=== PATIENT | male | born 1955 | race Caucasian/White ===

== ENCOUNTER 2020-03-15 17:53 | Emergency (ER) | payer MEDICARE, OTHER, SELFPAY ==
[2020-03-15 17:53] VITALS: BMI 27.2
--- NOTE | 2020-03-15 17:57 | ED_ITS ---
HPI - Abdominal Pain General: Chief Complaint: Abdominal Pain Stated Complaint: CONSTIPATION Time Seen by Provider: 03/15/20 17:54 History of Present Illness: HPI narrative: Patient is a 64-year-old male who comes to the ED with constipation and urinary retention. Patient has a past medical history of Parkinson's. He has been constipated for about 1 to 2 days which is not unusual for him. He took some mag citrate 2 days ago. He started having some abdominal pain in the lower abdomen today. Patient also says that he has not urinated in close to 24 hours. Patient's says he has had an episode of urinary retention in the past and his doctors told him that it is typical symptom for people with Parkinson's. While here in the ED patient did pass liquid stool, but still has not urinated. Patient said he could feel the mag citrate he took from a day or 2 ago working and causing him to pass loose stool while in the ED. Patient has been eating and drinking normally. Patient states that him having constipation was not as big of a concern, but the abdominal pain and his inability urinate is what brought him in for evaluation today. He denies any fever, chills, nausea, vomiting. Associated Symptoms: Reports constipation; Denies chills, diarrhea, dysuria, fever(s), hematochezia, hematuria, nausea and vomiting Review of Systems Const: Denies: fever(s), chills or fatigue Eyes: Denies: change in vision or eye discomfort ENMT: Denies: throat pain, odynophagia, nasal discharge or nasal congestion Card: Denies: chest pain, palpitations, edema, swelling of feet/ankles, dyspnea on exertion or orthopnea Resp: Denies: dyspnea, productive cough or non-productive cough GI: Reports: abdominal pain (lower abdomen) and constipation; Denies: nausea, vomiting, diarrhea or hematochezia : Reports: difficulty urinating (has not urinated in approximately 24 hours.) and oliguria; Denies: flank pain, dysuria or hematuria Musc: Denies: neck pain, back pain or extremity swelling Skin/Breast: Denies: rash or new lesions Neuro: Denies: headache(s), numbness in extremities or weakness in extremities PFS ED PFSH: Social History Smoking and tobacco status: never smoked Physical Exam Narrative: EXAM NARRATIVE: Patient is is a 64-year-old male is lying on the exam bed and showing signs of a resting tremor in both right and left extremities. He does not appear in any acute distress or pain. Const: COMMON NORMALS: no acute distress, patient oriented x3 and alert GENERAL APPEARANCE: cooperative and comfortable ORIENTATION/CONSCIOUSNESS: Yes awake, Yes oriented to person and Yes oriented to place HENMT: COMMON NORMALS: normocephalic HEAD & SCALP: normocephalic MOUTH: Normal oral and palatal mucosa present THROAT: posterior oropharynx normal and uvula midline Eye: COMMON NORMALS: Equal, round and reactive pupils present PUPIL: Yes Equal, round and reactive pupils present Neck/C-Spine: COMMON NORMALS: supple GENERAL: Yes normal visual inspection Resp: COMMON NORMALS: normal respiratory effort, No retractions, No use of acc essory muscles and clear to auscultation bilaterally EFFORT & INSPECTION: Yes able to speak in complete sentences AUSCULTATION: clear to auscultation bilaterally Cardio: COMMON NORMALS: regular rate, regular rhythm, S1 normal heart sound present, S2 normal heart sound present, No gallops present (Cardio), No clicks present (Cardio), No murmurs present (Cardio) and Peripheral pulses 2+ throughout RATE: regular rate RHYTHM: regular rhythm HEART SOUNDS: S1 normal heart sound present and S2 normal heart sound present PERIPHERAL PULSES: Peripheral pulses 2+ throughout GI: COMMON NORMALS: Normal to inspection, nondistended, normoactive bowel sounds present, Soft to palpation and no masses AUSCULTATION: Yes normoactive bowel sounds PALPATION: Yes Soft to palpation and Yes Tenderness to palpation present (GI) Details: LLQ (moderate tenderness) and other (lower abdomen over bladder was mildly tender to palpation) : COMMON NORMALS: Yes no CVA tenderness BLADDER/KIDNEY EXAM: Yes no CVA tenderness Back/Pelvis: COMMON NORMALS: no CVA tenderness Extremity: COMMON NORMALS: normal to inspection and no pedal edema Neuro: COMMON NORMALS: patient oriented x3 SENSORIUM/ORIENTATION: Yes alert, Yes oriented to person and Yes oriented to place GAIT: Yes Normal gait present MOTOR EXAM: Tremors during motor activity present resting tremor bialteral upper extremity Skin: COMMON NORMALS: no rashes or lesions noted GENERAL SKIN EXAM: no rashes or lesions noted and dry skin Course Reevaluation(s): Reevaluation #1: After placing the milk and molasses enema patient was able to pass large ball of stool that was causing impaction while here in the ED. Patient states that he feels better and is ready to get home. Vital Signs: Vital signs: Vital Signs Temperature 99.0 F 03/15/20 17:58 Pulse Rate 72 03/15/20 22:18 Respiratory Rate 18 03/15/20 22:18 Blood Pressure 158/85 03/15/20 22:18 Pulse Oximetry 98 03/15/20 22:18 MDM - Abdominal Pain MDM Narrative: Medical decision making narrative: Patient is a 64-year-old male who comes to the ED with constipation and urinary retention. Patient has a past medical history of Parkinson's disease and he takes carbidopa/levodopa and rivastigmine. Bladder scan was performed and patient had approximately 240 mils in urine. Murillo catheter was placed. CBC showed a white blood cell count of 13 and CMP, lipase and UA were unremarkable. Patient was given IV fluids and [address] of the abdomen showed a fecal impaction in the colon. Patient was then given milk of molasses enema and he was able to pass large ball of impacted stool. Patient felt better immediately after passing large stool. Patient's Murillo catheter was removed. Patient told to follow-up with his PCP in 5 to 7 days for reevaluation. I also told him to take MiraLAX, drink lots of water and increase fiber intake. I told patient he can return to the ED if symptoms worsen. Patient understood and agreed with plan. Lab Data: Attestation: I reviewed the patient's lab results. Labs: Lab Results 03/15/20 03/15/20 03/15/20 Range/Units 18:25 18:25 18:50 WBC 13.0 H (4.0-10.0) 10^3/ uL RBC 5.29 (4.1-5.3) 10^6/u L Hgb 15.0 (11.7-16.6) g/dL Hct 45.3 (42.0-52.0) % MCV 85.6 (80-94) fL MCH 28.4 (28.0-34.0) pg MCHC 33.1 (30.0-36.0) g/dL RDW 12.3 (12.1-15.1) % Plt Count 175 (130-400) 10^3/c mm MPV 9.3 (7.4-10.4) fL Neut % (Auto) 87.9 % Lymph % (Auto) 5.3 % Piatt % (Auto) 6.2 % Eos % (Auto) 0.1 % Baso % (Auto) 0.2 % Neut # (Auto) 11.4 H (1.8-7.7) 10^3/u L Lymph # (Auto) 0.7 L (0.8-4.8) 10^3/u L Piatt # (Auto) 0.8 (0.2-0.9) 10^3/u L Eos # (Auto) 0.0 (0.0-0.8) 10^3/u L Baso # (Auto) 0.0 (0.0-0.1) 10^3/u L Nucleated RBC % (a uto) 0 % Nucleated RBCs # 0.0 /100WBC Sodium 139 (136-145) mmol/L Potassium 4.2 (3.5-5.1) mmol/L Chloride 102 (98-107) mmol/L Carbon Dioxide 25 (22-29) mmol/L Anion Gap 16.2 (5-19) BUN 16 (8-23) mg/dL Creatinine 0.8 (0.7-1.2) mg/dL GFR Calculation 98.0 (90-130) mL/min Glucose 120 H (65-115) mg/dL Calculated Osmolal ity 286 (285-295) mOsm/k g Calcium 9.1 (8.5-10.5) mg/dL Total Bilirubin 0.8 (0.15-1.2) mg/dL AST 22 (0-40) U/L ALT 29 (0-41) U/L Alkaline Phosphata se 54 (40-130) IU/L Total Protein 7.1 (6.6-8.7) g/dL Albumin 4.6 (3.5-5.2) g/dL Globulin 2.5 (1.3-4.6) g/dL Lipase 41 (13-60) U/L Urine Color Yellow (Yellow) Urine Appearance Clear (CLEAR) Urine pH 7 (5-7) Ur Specific Gravit y 1.010 (1.005-1.030) Urine Protein Neg (Negative) Urine Glucose (UA) Norm (Normal) Urine Ketones 1+ H (Negative) Urine Blood Neg (Negative) Urine Nitrate Negative (Negative) Urine Bilirubin Neg (NEGATIVE) Urine Urobilinogen Norm (Negative) mg/dL Ur Leukocyte Diane ase Negative (Negative) Urine RBC None (0-2) /hpf Urine WBC None (0-5) /hpf Ur Squamous Epith Cells None (0-5) Urine Bacteria Trace (NONE) Urine Mucus - Imaging Data ^: CT Abd/Pel: Attestation: I personally reviewed and interpreted this imaging study as follows: Radiologist's impression: [place] [address] CT Scan Report Signed Patient: Casey Hernandes Unit #: [id number] : 1955 Age/Sex: 64 / M ADM Date: 03/15/20 Loc: ER Room/Bed: Attending Dr: Ordering Provider/Ordering MD: Ángel Albarran Date of Service: 03/15/20 Procedure(s): CT abdomen pelvis w con* [id number] Accession Number(s): [id number] Report Number: [id number] PROCEDURE INFORMATION: Exam: CT Abdomen And Pelvis With Contrast Exam date and time: 03/15/2020 7:07 PM Age: 64 years old Clinical indication: Abdominal tenderness and constipation; Patient HX: PT shakes uncontrollably; Additional info: Abdom pain, constipation, urine retention, abdom spasms TECHNIQUE: Imaging protocol: Computed tomography of the abdomen and pelvis with intravenous contrast. Radiation optimization: All CT scans at this facility use at least one of these dose optimization techniques: automated exposure control; mA and/or kV adjustment per patient size (includes targeted exams where dose is matched to clinical indication); or iterative reconstruction. Contrast material: OMNI; Contrast volume: 95 ml; Contrast route: IV; COMPARISON: No relevant prior studies available. RADIATION DOSE METRICS: Total DLP: 1041.48 mGy-cm FINDINGS: Liver: Normal. No mass. Gallbladder and bile ducts: Normal. No calcified stones. No ductal dilation. Pancreas: Normal. No ductal dilation. Spleen: Calcified granulomas in the spleen. Adrenals: Normal. No mass. Kidneys and ureters: 2 mm and 4 mm nonobstructing calculi in the left kidney. The right kidney is normal. No ureteral calculus or hydronephrosis. Stomach and bowel: Large stool ball in the rectum. The remainder of the colon is fluid-filled with scattered air-fluid levels. The stomach and small bowel are unremarkable. Appendix: No evidence of appendicitis. Intraperitoneal space: Unremarkable. No free air. No significant fluid collection. Vasculature: Unremarkable. No abdominal aortic aneurysm. Lymph nodes: Unremarkable. No enlarged lymph nodes. Bladder: Murillo catheter in the urinary bladder. Reproductive: Unremarkable as visualized. Bones/joints: Degenerative changes with disc space narrowing at L5-S1. No compression fracture. Soft tissues: Unremarkable. CT/CT abdomen pelvis w con* [id number] IMPRESSION: 1. Large stool ball in the rectum, consistent with impaction. 2. Liquid throughout the remainder of the colon with air-fluid levels, consistent with diarrhea. 3. Nonobstructing left renal calculi. Radiation Dose CTDIVOL = (mGy): DLP = 1041.48 (mGy-cm) Dictated By: Odell Espinoza Signed By: Odell Espinoza Signed Date/Time: 03/15/202000 DD/ 58 Discharge Plan Discharge Patient Disposition: Home, Self-Care Clinical Impression: Fecal impaction of rectum Condition: Stable Prescriptions: No Action rivastigmine tartrate 1.5 mg Capsule 1.5 mg PO BID RF: 0 carbidopa-levodopa 25-100 mg Tablet 2 tab PO QID RF: 0 melatonin 10 mg Tablet 10 mg PO DAILY RF: 0 Discharge Orders: Discharge Order (Routine); Ordered 03/15/20 Ordered By: Ángel Albarran Discharge Diet: Regular Discharge Activity: Resume usual activity Patient Instructions: Constipation - Adult, Fecal Impaction (ED) Activity Restrictions/Additional Instructions: Follow-up with your PCP in 5 to 7 days for reevaluation. After a couple days you could purchase [id number] MiraLAX and take daily to help with constipation and normalizing bowel movements. Take Tylenol or ibuprofen for any pain or fever. Drink plenty of fluids and stay hydrated. Return to ED if you have any worsening symptoms. Discharge Date/Time: 03/15/20 22:24 Coding Level of Care Code ED Chief Enterprise Architect for Chg Fwd Exam Comprehensive
[2020-03-15 17:58] VITALS: BP 134/66; PULSE 116; RESP 18; TEMP 37.2; O2SAT 94
[2020-03-15 18:34] LABS: Basophils % 0.2 %; Eosinophils % 0.1 %; Hematocrit 45.3 % (42.0-52.0); Lymphocytes # 0.7 10^3/uL (0.8-4.8); Lymphocytes % 5.3 %; Mean Corpuscular HGB Conc 33.1 g/dL (30.0-36.0); Mean Corpuscular Hemoglobin 28.4 pg (28.0-34.0); Mean Corpuscular Volume 85.6 fL (80-94); Mean Platelet Volume 9.3 fL (7.4-10.4); Monocytes # 0.8 10^3/uL (0.2-0.9); Monocytes % 6.2 %; Neutrophils # 11.4 10^3/uL (1.8-7.7); Neutrophils % 87.9 %; Nucleated Red Blood Cells % 0 %; Platelet Count 175 10^3/cmm (130-400); Red Blood Count 5.29 10^6/uL (4.1-5.3); Red Cell Distribution Width 12.3 % (12.1-15.1)
--- NOTE | 2020-03-15 18:35 | CTR_ITS ---
PROCEDURE INFORMATION: Exam: CT Abdomen And Pelvis With Contrast Exam date and time: 03/15/2020 7:07 PM Age: 64 years old Clinical indication: Abdominal tenderness and constipation; Patient HX: PT shakes uncontrollably; Additional info: Abdom pain, constipation, urine retention, abdom spasms TECHNIQUE: Imaging protocol: Computed tomography of the abdomen and pelvis with intravenous contrast. Radiation optimization: All CT scans at this facility use at least one of these dose optimization techniques: automated exposure control; mA and/or kV adjustment per patient size (includes targeted exams where dose is matched to clinical indication); or iterative reconstruction. Contrast material: OMNI; Contrast volume: 95 ml; Contrast route: IV; COMPARISON: No relevant prior studies available. RADIATION DOSE METRICS: Total DLP: 1041.48 mGy-cm FINDINGS: Liver: Normal. No mass. Gallbladder and bile ducts: Normal. No calcified stones. No ductal dilation. Pancreas: Normal. No ductal dilation. Spleen: Calcified granulomas in the spleen. Adrenals: Normal. No mass. Kidneys and ureters: 2 mm and 4 mm nonobstructing calculi in the left kidney. The right kidney is normal. No ureteral calculus or hydronephrosis. Stomach and bowel: Large stool ball in the rectum. The remainder of the colon is fluid-filled with scattered air-fluid levels. The stomach and small bowel are unremarkable. Appendix: No evidence of appendicitis. Intraperitoneal space: Unremarkable. No free air. No significant fluid collection. Vasculature: Unremarkable. No abdominal aortic aneurysm. Lymph nodes: Unremarkable. No enlarged lymph nodes. Bladder: Murillo catheter in the urinary bladder. Reproductive: Unremarkable as visualized. Bones/joints: Degenerative changes with disc space narrowing at L5-S1. No compression fracture. Soft tissues: Unremarkable. CT/CT abdomen pelvis w con* [id number] IMPRESSION: 1. Large stool ball in the rectum, consistent with impaction. 2. Liquid throughout the remainder of the colon with air-fluid levels, consistent with diarrhea. 3. Nonobstructing left renal calculi. Radiation Dose CTDIVOL = (mGy): DLP = 1041.48 (mGy-cm)
[2020-03-15 19:01] LABS: Alanine Aminotransferase 29 U/L (0-41); Albumin Level 4.6 g/dL (3.5-5.2); Alkaline Phosphatase 54 IU/L (40-130); Anion Gap 16.2 (5-19); Aspartate Amino Transferase 22 U/L (0-40); Blood Urea Nitrogen 16 mg/dL (8-23); Calcium 9.1 mg/dL (8.5-10.5); Carbon Dioxide 25 mmol/L (22-29); Chloride 102 mmol/L (98-107); Globulin 2.5 g/dL (1.3-4.6); Glucose 120 mg/dL (65-115); Lipase 41 U/L (13-60); Osmolality Calculated 286 mOsm/kg (285-295); Potassium 4.2 mmol/L (3.5-5.1); Sodium 139 mmol/L (136-145); Total Bilirubin 0.8 mg/dL (0.15-1.2); Total Protein 7.1 g/dL (6.6-8.7)
[2020-03-15] MEDS: sodium chloride 0.9% 1,000 ML 999 ML IV (19:12)
[2020-03-15 19:13] LABS: Glucose Urine UA Norm (Normal); Protein Urine Neg (Negative); Urine Appearance Clear (CLEAR); Urine Color Yellow (Yellow); pH Urine 7 (5-7)
[2020-03-15 19:14] LABS: Add Urine Culture? No; Bacteria Urine TRACE; Bilirubin Urine Neg (NEGATIVE); Blood Urine Neg (Negative); Ketones Urine 1+ (Negative); Leukocyte Esterase Urine Negative (Negative); Nitrate Urine Negative (Negative); Urobilinogen Urine Norm (Negative)
[2020-03-15] MEDS: iohexol 300 mg/mL 100 mL Btl IV (19:35)
[2020-03-15] MEDS: cefTRIAXone 2,000 MG in sodium chloride 0.9% (plus) 50 ML 100 MG IV (19:44)
[2020-03-15] MEDS: ondansetron 2 mg/ML SDV 2 mL 4 MG IVP (20:02)
[2020-03-15 20:51] VITALS: RESP 18; O2SAT 98
[2020-03-15] MEDS: morphine 4 mg/mL SDV 1 mL IVP (20:51)
--- NOTE | 2020-03-15 22:16 | PC.NURSE ---
MILK AND MOLASSESS ENEMA GIVEN WITH SUCCESS, X-LARGE FORMED BM NOTED. PT STATES FEELING BETTER. GRIJALVA CATHETER DC'D WITHOUT DIFFICULTY.
[2020-03-15 22:18] VITALS: BP 158/85; PULSE 72; RESP 18; O2SAT 98
== END 2020-03-15 22:24 | disposition home or self-care (01) ==
PROVIDERS: Emergency Provider Physician Assistant
DX: K56.49 Other impaction of intestine (principal)
CPT/HCPCS: 12345; 36415; 51701; 51798; 74177; 80053; 81001; 83690; 85025; 96365; 96366; 96367; 96368; 96375; 99282; 99284; J0696; J2270; J2405; J7030; Q9967

== ENCOUNTER 2020-04-18 06:45 | Day surgery (SDC) | payer MEDICARE, OTHER, SELFPAY ==
[2020-04-14 13:02] VITALS: BMI 26.1
[2020-04-18 07:14] VITALS: BP 136/82; PULSE 87; RESP 18; TEMP 36.5; O2SAT 99
--- NOTE | 2020-04-18 07:16 | ANES.PREANE2 ---
Pre-Anesthetic Assessment Pre-Anesthetic Assessment: Height/Weight: Height 1.78 m Weight 82.554 kg Preop Diagnosis: Screening Proposed Procedure: Operation Date: 04/18/20 07:30 Proposed Procedures p colonoscopy with poss biopsy poss polpectomy(Not Applicable) - Antoine Sainz MD Was Beta Wilbert taken within 24 hours: N/A Social: Social History: No alcohol and No tobacco Exam: Pre-Anes Outpt Exam: alert, oriented x 3, clear to auscultation bilaterally and regular rate & rhythm Airway: Submandibular: WNL Cervical ROM: WNL MP: 1 Dentition: Full Pulmonary: Pulmonary: None reported CV/HEM: CV/HEM: None reported : : None reported Hepatic: Hepatic: None reported GI: GI: None reported Metabolic: Metabolic: None reported Musc/skel: Musc/skel: Weakness Comments: Parkinsons Neuropsych: Neuropsych: None reported Anesthetic Plan: ASA status: 2 Anesthesia: MAC Risk of > 500 ml blood loss (7ml/kg in children): No PFSH Anesthesia PFSH: Medical History Parkinson disease Surgical History History of colonoscopy Family History Denies family history of Anesthesia complication Bleeding disorder Social History Smoking and tobacco status: never smoked History of recent travel: No Data Anesthesia Cardiac Studies: No Data to Display
[2020-04-18] MEDS: sodium chloride 0.9% 1,000 ML 30 ML IV (07:30)
--- NOTE | 2020-04-18 07:57 | W.PM.OPSUD ---
Surgery/Procedure H&P Update DATE OF PROCEDURE: April 18, 2020 DATE H&P PERFORMED: 03/31/20 H&P UPDATE INFORMATION: I have reviewed H&P completed within last 30 days, I have examined patient prior to procedure and No changes to prior documentation PREOP DIAGNOSIS: Screening PLANNED PROCEDURE: Operation Date: 04/18/20 07:30 Proposed Procedures p colonoscopy with poss biopsy poss polpectomy(Not Applicable) - Antoine Sainz MD
[2020-04-18 08:13] VITALS: BP 131/76; PULSE 64; RESP 18; TEMP 36.8; O2SAT 99
--- NOTE | 2020-04-18 08:16 | ANE.PACU2 ---
Inpatient post-anesthesia follow up: Airway intact: Yes Vital signs: Temperature 98.3 F Pulse Rate 64 Respiratory Rate 18 Blood Pressure 131/76 Pulse Oximetry 99 Oxygen Delivery Me thod Nasal Cannula Oxygen Flow Rate 2 Fraction of Inspir ed Oxygen Hydration adequate: Yes Nausea and vomiting: No Mental status: Baseline
[2020-04-18 08:32] VITALS: BP 151/97; PULSE 83; RESP 16; O2SAT 97
== END 2020-04-18 08:47 | disposition home or self-care (01) ==
PROVIDERS: Visit Provider Surgery
PROC: 0DJD8ZZ Inspection of Lower Intestinal Tract, Via Natural or Artificial Opening Endoscopic (ICD-10-PCS; CPT 45378; principal; 2020-04-18 07:30)
DX: Z12.11 Encounter for screening for malignant neoplasm of colon (principal); K57.90 Diverticulosis of intestine, part unspecified, without perforation or abscess without bleeding; K64.8 Other hemorrhoids; G20 Parkinson's disease
CPT/HCPCS: 12345; G0121; J2704

== ENCOUNTER → 2021-07-18 09:44 | Outpatient (BNVA) | payer MEDICARE, OTHER, SELFPAY | PROVIDERS: PCP Registered Nurse; Visit Provider Registered Nurse | DX: N39.0 Urinary tract infection, site not specified (principal); R30.0 Dysuria | CPT/HCPCS: 81000; 87086 ==

== ENCOUNTER 2023-04-10 17:37 | Emergency (ER) | payer MEDICARE, SELFPAY ==
[2023-04-10 17:43] VITALS: BP 141/81; PULSE 90; TEMP 37.1; O2SAT 98; BMI 22.0
--- NOTE | 2023-04-10 17:47 | XRR_ITS ---
PROCEDURE INFORMATION: Exam: XR Chest Exam date and time: 04/10/2023 5:53 PM Age: 67 years old Clinical indication: Pain; Chest pressure; Additional info: Dyspnea/cough TECHNIQUE: Imaging protocol: Radiologic exam of the chest. Views: 1 view. COMPARISON: CT abdomen pelvis w con* [id number] 03/15/2020 7:27 PM FINDINGS: Lungs: Unremarkable. No consolidation. Pleural spaces: Unremarkable. No pleural effusion. No pneumothorax. Heart/Mediastinum: Unremarkable. No cardiomegaly. Bones/joints: Unremarkable. XR/XR chest 1V portable [id number] IMPRESSION: No acute findings.
--- NOTE | 2023-04-10 18:02 | ECG_ITS ---
[facility] Test Date: 2023-04-10 Pat Name: Casey Hernandes Department: Room: Gender: Male Research Associate: : 1955 Requested By: Tonny Gutierrez Order Number: [id number] Cristina MD: Mary Mancilla M.D. Measurements Intervals [place] Rate: 85 P: 35 NV: 148 QRS: 50 QRSD: 86 T: 39 QT: 342 QTc: 408 Interpretive Statements SINUS RHYTHM No previous ECG available for comparison Electronically Signed On 04-11-2023 4:56:59 CDT by Mary Mancilla M.D. [email or web address]
--- NOTE | 2023-04-10 18:03 | W.ED.ABDPA2 ---
Documented by User: Tonny Skinner DO 04/10/23 18:13 HPI - Abdominal Pain General: Chief Complaint: Abdominal Pain Stated Complaint: general weakness Time Seen by Provider: 04/10/23 17:46 Source: patient Mode of arrival: EMS History of Present Illness: 67-year-old male presents emergency room complaining of abdominal pain. He told the nurse was upper abdominal pain but on examination he describes and indicated to suprapubic pain. He states he had difficulty keeping anything down the last few days he has had a little bit of a low-grade fever denies any hematemesis or coffee-ground emesis has not noticed anything that exacerbates or relieves his symptoms. Has not really taken anything for it. No dysuria urgency or frequency no hematuria he has been able to void and have bowel movement without difficulty. MD elicited complaint: abdominal pain Associated Symptoms: Reports fever(s), nausea and vomiting; Denies bloating, chills, coffee ground emesis, constipation, diarrhea, dysuria, hematochezia, hematemesis and melena Review of Systems Const: Reports: fever(s); Denies: chills, change in appetite, fatigue or malaise Card: Denies: chest pain, palpitations, irregular heart rhythm, edema, dyspnea on exertion or orthopnea Resp: Denies: dyspnea, productive cough or non-productive cough GI: Reports: abdominal pain, nausea and vomiting; Denies: hematemesis, coffee ground emesis, diarrhea, constipation, bloating, hematochezia or melena : Reports: difficulty urinating (Small amounts) and urinary hesitancy; Denies: flank pain, dysuria, urinary frequency or urinary urgency Skin/Breast: Denies: rash or pruritus PFSH ED PFSH: Medical History Parkinson disease Surgical History History of colonoscopy Status post colonoscopy (04/18/20) Family History Denies family history of Anesthesia complication Bleeding disorder Social History Smoking and tobacco status: never smoked Alcohol intake: never Substance/Drug Use: never Adopted: No Caregiver/support person: No Lives independently: No Household members: spouse Marital status: Sexually active: Yes Do you think of yourself as: Straight/Heterosexual Current gender identity: Male Physical Exam Const: GENERAL APPEARANCE: cooperative and comfortable ORIENTATION/CONSCIOUSNESS: Yes awake, Yes oriented to person, Yes oriented to place and Yes oriented to time HENMT: COMMON NORMALS: normocephalic, atraumatic and hearing grossly normal bilaterally HEAD & SCALP: normocephalic and atraumatic Resp: COMMON NORMALS: normal respiratory effort, No retractions, No use of accessory muscles and clear to auscultation bilaterally AUSCULTATION: clear to auscultation bilaterally Cardio: COMMON NORMALS: regular rate, regular rhythm and No murmurs present (Cardio) RATE: regular rate RHYTHM: regular rhythm GI: COMMON NORMALS: No hepatosplenomegaly present AUSCULTATION: Yes normoactive bowel sounds PALPATION: Yes Tenderness to palpation present (GI) (Mild suprapubic tenderness no guarding or rebound), No Guarding due to palpation present (GI) and Yes No hepatosplenomegaly present : COMMON NORMALS: Yes no CVA tenderness BLADDER/KIDNEY EXAM: Yes no CVA tenderness Back/Pelvis: COMMON NORMALS: no CVA tenderness Extremity: COMMON NORMALS: normal to inspection, capillary refill normal, no clubbing, cyanosis or edema, no calf tenderness and no pedal edema Neuro: SENSORIUM/ORIENTATION: Yes oriented to person, Yes oriented to place and Yes oriented to time Skin: COMMON NORMALS: no rashes or lesions noted GENERAL SKIN EXAM: no rashes or lesions noted Course Vital Signs: Vital signs: Vital Signs Temperature 98.5 F 04/10/23 19:22 Pulse Rate 107 H 04/10/23 19:22 Respiratory Rate 16 04/10/23 19:22 Blood Pressure 129/74 04/10/23 19:22 Pulse Oximetry 95 04/10/23 19:22 Oxygen Delivery Me thod Room Air 04/10/23 19:22 MDM - Abdominal Pain Medical Decision Making Care signed out to Dr. Rush at change of shift. See final notes for diagnosis and disposition. Lab Data 04/10/23 18:00 04/10/23 18:00 Labs/Radiology: Radiology Impressions Chest X-Ray 04/10/23 17:47 IMPRESSION: No acute findings. Laboratory Results WBC 9.3 10^3/uL (4.0-10.0) 04/10/23 18:00 RBC 4.46 10^6/uL (4.1-5.3) 04/10/23 18:00 Hgb 10.7 g/dL (11.7-16.6) L 04/10/23 18:00 Hct 35.3 % (42.0-52.0) L 04/10/23 18:00 MCV 79.1 fl (80-94) L 04/10/23 18:00 MCH 24.0 pg (28.0-34.0) L 04/10/23 18:00 MCHC 30.3 g/dL (30.0-36.0) 04/10/23 18:00 RDW 13.6 % (12.1-15.1) 04/10/23 18:00 Plt Count 389 10^3/cmm (130-400) 04/10/23 18:00 MPV 9.2 fL (7.4-10.4) 04/10/23 18:00 Neut % (Auto) 83.9 % 04/10/23 18:00 Lymph % (Auto) 7.2 % 04/10/23 18:00 [place] % (Auto) 7.6 % 04/10/23 18:00 Eos % (Auto) 0.2 % 04/10/23 18:00 Baso % (Auto) 0.3 % 04/10/23 18:00 Neut # (Auto) 7.79 10^3/uL (1.8-7.7) H 04/10/23 18:00 Lymph # (Auto) 0.7 10^3/uL (0.8-4.8) L 04/10/23 18:00 [place] # (Auto) 0.7 10^3/uL (0.2-0.9) 04/10/23 18:00 Eos # (Auto) 0.0 10^3/uL (0.0-0.8) 04/10/23 18:00 Baso # (Auto) 0.0 10^3/uL (0.0-0.1) 04/10/23 18:00 Nucleated RBC % (auto) 0 % 04/10/23 18:00 Nucleated RBCs # 0.0 /100WBC 04/10/23 18:00 Sodium 138 mmol/L (136-145) 04/10/23 18:00 Potassium 4.4 mmol/L (3.5-5.1) 04/10/23 18:00 Chloride 102 mmol/L (98-107) 04/10/23 18:00 Carbon Dioxide 25 mmol/L (22-29) 04/10/23 18:00 Anion Gap 15.4 (5-19) 04/10/23 18:00 BUN 7 mg/dL (8-23) L 04/10/23 18:00 Creatinine 0.8 mg/dL (0.7-1.2) 04/10/23 18:00 GFR Calculation 97.0 mL/min (90-130) 04/10/23 18:00 Glucose 91 mg/dL (65-115) 04/10/23 18:00 Calculated Osmolality 284 mOsm/kg (285-295) L 04/10/23 18:00 Calcium 8.2 mg/dL (8.5-10.5) L 04/10/23 18:00 Total Bilirubin 0.3 mg/dL (0.15-1.2) 04/10/23 18:00 AST 34 U/L (0-40) 04/10/23 18:00 ALT 30 U/L (0-41) 04/10/23 18:00 Alkaline Phosphatase 58 U/L (40-130) 04/10/23 18:00 Creatine Kinase 33 U/L (39-308) L 04/10/23 18:00 Total Protein 6.5 g/dL (6.6-8.7) L 04/10/23 18:00 Albumin 3.4 g/dL (3.5-5.2) L 04/10/23 18:00 Globulin 3.1 g/dL (1.3-4.6) 04/10/23 18:00 Urine Color Sariah (Yellow) 04/10/23 18:55 Urine Appearance Clear (CLEAR) 04/10/23 18:55 Urine pH 5 (5-7) 04/10/23 18:55 Ur Specific [place] 1.020 (1.005-1.030) 04/10/23 18:55 Urine Protein Neg (Negative) 04/10/23 18:55 Urine Glucose (UA) Norm (Normal) 04/10/23 18:55 Urine Ketones 2+ (Negative) H 04/10/23 18:55 Urine Blood Neg (Negative) 04/10/23 18:55 Urine Nitrate Negative (Negative) 04/10/23 18:55 Urine Bilirubin Neg (Negative) 04/10/23 18:55 Urine Urobilinogen Norm mg/dL (Negative) 04/10/23 18:55 Ur Leukocyte Esterase Negative (Negative) 04/10/23 18:55 Discharge Plan Discharge Patient Disposition: Home Clinical Impression: Gastroenteritis Condition: Stable Prescriptions: New ondansetron HCl 4 mg tablet 4 mg PO Q6H PRN (Reason: nausea and vomiting) Qty: 14 0RF No Action rasagiline 1 mg tablet 1 mg PO DAILY clonazepam 0.5 mg tablet 0.5 mg PO DAILY entacapone 200 mg tablet 200 mg PO QID Rx Instructions: administer at the same time as l-dopa/carbidopa dose polyethylene glycol 3350 17 g PO DAILY Rx Instructions: 1 cap per day carbidopa-levodopa 25-100 mg Tablet 2 tab PO QID melatonin 10 mg Tablet 10 mg PO DAILY Discharge Orders: Discharge ED (Routine); Ordered 04/10/23 Ordered By: Yoshi Rush Referrals: Suzette Fontenot FNP [Primary Care Provider] - 1 week Patient Instructions: Acute Nausea and Vomiting (ED), Abdominal Pain (ED) Activity Restrictions/Additional Instructions: As neededPlease take your nausea medicine as. Please drink plenty of fluids. Please follow-up with your primary care practitioner in the next 7 to 10 days for further evaluation and treatment as needed. Coding Level of Care Code ED Customer Supply Coordinator for Chg Fwd Documented by User: Yoshi Rush DO 04/10/23 20:34 HPI - Abdominal Pain General: Chief Complaint: Abdominal Pain Stated Complaint: general weakness Time Seen by Provider: 04/10/23 17:46 PFSH ED PFSH: Medical History Parkinson disease Surgical History History of colonoscopy Status post colonoscopy (04/18/20) Family History Denies family history of Anesthesia complication Bleeding disorder Social History Smoking and tobacco status: never smoked Alcohol intake: never Substance/Drug Use: never Adopted: No Caregiver/support person: No Lives independently: No Household members: spouse Marital status: Sexually active: Yes Do you think of yourself as: Straight/Heterosexual Current gender identity: Male Course Vital Signs: Vital signs: Vital Signs Temperature 98.5 F 04/10/23 19:22 Pulse Rate 107 H 04/10/23 19:22 Respiratory Rate 16 04/10/23 19:22 Blood Pressure 129/74 04/10/23 19:22 Pulse Oximetry 95 04/10/23 19:22 Oxygen Delivery Me thod Room Air 04/10/23 19:22 MDM - Abdominal Pain Medical Decision Making Care signed out to Dr. Rush at change of shift. See final notes for diagnosis and disposition. Patient was reexamined and appeared to be laying in bed comfortably with IV infusing. Lab work was explained to the patient as well as chest x-ray and urine. Patient has no complaints at this time. Patient will be discharged home after his IV finishes infusing patient will be given a prescription for Zofran to take as needed patient is to follow-up with his PCP in next 7 to 10 days as needed. Lab Data 04/10/23 18:00 04/10/23 18:00 Labs/Radiology: Radiology Impressions Chest X-Ray 04/10/23 17:47 IMPRESSION: No acute findings. Laboratory Results WBC 9.3 10^3/uL (4.0-10.0) 04/10/23 18:00 RBC 4.46 10^6/uL (4.1-5.3) 04/10/23 18:00 Hgb 10.7 g/dL (11.7-16.6) L 04/10/23 18:00 Hct 35.3 % (42.0-52.0) L 04/10/23 18:00 MCV 79.1 fl (80-94) L 04/10/23 18:00 MCH 24.0 pg (28.0-34.0) L 04/10/23 18:00 MCHC 30.3 g/dL (30.0-36.0) 04/10/23 18:00 RDW 13.6 % (12.1-15.1) 04/10/23 18:00 Plt Count 389 10^3/cmm (130-400) 04/10/23 18:00 MPV 9.2 fL (7.4-10.4) 04/10/23 18:00 Neut % (Auto) 83.9 % 04/10/23 18:00 Lymph % (Auto) 7.2 % 04/10/23 18:00 [place] % (Auto) 7.6 % 04/10/23 18:00 Eos % (Auto) 0.2 % 04/10/23 18:00 Baso % (Auto) 0.3 % 04/10/23 18:00 Neut # (Auto) 7.79 10^3/uL (1.8-7.7) H 04/10/23 18:00 Lymph # (Auto) 0.7 10^3/uL (0.8-4.8) L 04/10/23 18:00 [place] # (Auto) 0.7 10^3/uL (0.2-0.9) 04/10/23 18:00 Eos # (Auto) 0.0 10^3/uL (0.0-0.8) 04/10/23 18:00 Baso # (Auto) 0.0 10^3/uL (0.0-0.1) 04/10/23 18:00 Nucleated RBC % (auto) 0 % 04/10/23 18:00 Nucleated RBCs # 0.0 /100WBC 04/10/23 18:00 Sodium 138 mmol/L (136-145) 04/10/23 18:00 Potassium 4.4 mmol/L (3.5-5.1) 04/10/23 18:00 Chloride 102 mmol/L (98-107) 04/10/23 18:00 Carbon Dioxide 25 mmol/L (22-29) 04/10/23 18:00 Anion Gap 15.4 (5-19) 04/10/23 18:00 BUN 7 mg/dL (8-23) L 04/10/23 18:00 Creatinine 0.8 mg/dL (0.7-1.2) 04/10/23 18:00 GFR Calculation 97.0 mL/min (90-130) 04/10/23 18:00 Glucose 91 mg/dL (65-115) 04/10/23 18:00 Calculated Osmolality 284 mOsm/kg (285-295) L 04/10/23 18:00 Calcium 8.2 mg/dL (8.5-10.5) L 04/10/23 18:00 Total Bilirubin 0.3 mg/dL (0.15-1.2) 04/10/23 18:00 AST 34 U/L (0-40) 04/10/23 18:00 ALT 30 U/L (0-41) 04/10/23 18:00 Alkaline Phosphatase 58 U/L (40-130) 04/10/23 18:00 Creatine Kinase 33 U/L (39-308) L 04/10/23 18:00 Total Protein 6.5 g/dL (6.6-8.7) L 04/10/23 18:00 Albumin 3.4 g/dL (3.5-5.2) L 04/10/23 18:00 Globulin 3.1 g/dL (1.3-4.6) 04/10/23 18:00 Urine Color Sariah (Yellow) 04/10/23 18:55 Urine Appearance Clear (CLEAR) 04/10/23 18:55 Urine pH 5 (5-7) 04/10/23 18:55 Ur Specific [place] 1.020 (1.005-1.030) 04/10/23 18:55 Urine Protein Neg (Negative) 04/10/23 18:55 Urine Glucose (UA) Norm (Normal) 04/10/23 18:55 Urine Ketones 2+ (Negative) H 04/10/23 18:55 Urine Blood Neg (Negative) 04/10/23 18:55 Urine Nitrate Negative (Negative) 04/10/23 18:55 Urine Bilirubin Neg (Negative) 04/10/23 18:55 Urine Urobilinogen Norm mg/dL (Negative) 04/10/23 18:55 Ur Leukocyte Esterase Negative (Negative) 04/10/23 18:55 EKG Data EKG 1: I personally reviewed and interpreted this EKG as follows: EKG interpretation date: 04/10/23 EKG interpretation time: 18:02 Prior EKG tracings: not available for review Interpretation: EKG showed ventricular rate 85 bpm, PA interval 148, QRS duration 86, QTc 384, normal sinus rhythm with no ST-T wave changes. Discharge Plan Discharge Patient Disposition: Home Clinical Impression: Gastroenteritis Condition: Stable Prescriptions: New ondansetron HCl 4 mg tablet 4 mg PO Q6H PRN (Reason: nausea and vomiting) Qty: 14 0RF No Action rasagiline 1 mg tablet 1 mg PO DAILY clonazepam 0.5 mg tablet 0.5 mg PO DAILY entacapone 200 mg tablet 200 mg PO QID Rx Instructions: administer at the same time as l-dopa/carbidopa dose polyethylene glycol 3350 17 g PO DAILY Rx Instructions: 1 cap per day carbidopa-levodopa 25-100 mg Tablet 2 tab PO QID melatonin 10 mg Tablet 10 mg PO DAILY Discharge Orders: Discharge ED (Routine); Ordered 04/10/23 Ordered By: Yoshi Rush Referrals: Suzette Fontenot, ROOFING SUBCONTRACTOR [Primary Care Provider] - 1 week Patient Instructions: Acute Nausea and Vomiting (ED), Abdominal Pain (ED) Activity Restrictions/Additional Instructions: As neededPlease take your nausea medicine as. Please drink plenty of fluids. Please follow-up with your primary care practitioner in the next 7 to 10 days for further evaluation and treatment as needed. Coding Level of Care Code ED Customer Supply Coordinator for Izzy Solomon
[2023-04-10 18:20] VITALS: BP 129/82; PULSE 91; O2SAT 96
[2023-04-10] MEDS: ondansetron 2 mg/ML SDV 2 mL 4 MG IVP (18:40)
[2023-04-10] MEDS: sodium chloride 0.9% 1,000 ML 999 ML IV (18:42)
[2023-04-10 18:52] LABS: Basophils % 0.3 %; Eosinophils % 0.2 %; Hematocrit 35.3 % (42.0-52.0); Hemoglobin 10.7 g/dL (11.7-16.6); Lymphocytes # 0.7 10^3/uL (0.8-4.8); Lymphocytes % 7.2 %; Mean Corpuscular HGB Conc 30.3 g/dL (30.0-36.0); Mean Corpuscular Volume 79.1 fl (80-94); Mean Platelet Volume 9.2 fL (7.4-10.4); Monocytes # 0.7 10^3/uL (0.2-0.9); Monocytes % 7.6 %; Neutrophils # 7.79 10^3/uL (1.8-7.7); Neutrophils % 83.9 %; Nucleated Red Blood Cells % 0 %; Platelet Count 389 10^3/cmm (130-400); Red Blood Count 4.46 10^6/uL (4.1-5.3); Red Cell Distribution Width 13.6 % (12.1-15.1); White Blood Count 9.3 10^3/uL (4.0-10.0)
[2023-04-10 19:04] LABS: Alanine Aminotransferase 30 U/L (0-41); Albumin Level 3.4 g/dL (3.5-5.2); Alkaline Phosphatase 58 U/L (40-130); Anion Gap 15.4 (5-19); Aspartate Amino Transferase 34 U/L (0-40); Blood Urea Nitrogen 7 mg/dL (8-23); Calcium 8.2 mg/dL (8.5-10.5); Carbon Dioxide 25 mmol/L (22-29); Chloride 102 mmol/L (98-107); Creatine Phosphokinase 33 U/L (39-308); Globulin 3.1 g/dL (1.3-4.6); Glucose 91 mg/dL (65-115); Osmolality Calculated 284 mOsm/kg (285-295); Potassium 4.4 mmol/L (3.5-5.1); Sodium 138 mmol/L (136-145); Total Bilirubin 0.3 mg/dL (0.15-1.2); Total Protein 6.5 g/dL (6.6-8.7)
[2023-04-10 19:18] LABS: Add Urine Microscopic? NO; Charge for UA Resulting for Rev
[2023-04-10 19:22] VITALS: BP 129/74; PULSE 107; RESP 16; TEMP 36.9; O2SAT 95
--- NOTE | 2023-04-10 19:24 | PC.NURSE ---
Report from BLACK Canela. Pt sitting up in bed. Rates pain 3/10. Asking for water. Will check with MD. No further needs at this time.
[2023-04-10 19:29] LABS: Bilirubin Urine Neg (Negative); Blood Urine Neg (Negative); Glucose Urine UA Norm (Normal); Ketones Urine 2+ (Negative); Leukocyte Esterase Urine Negative (Negative); Nitrate Urine Negative (Negative); Protein Urine Neg (Negative); Urine Appearance Clear (CLEAR); Urine Color Amber (Yellow); Urobilinogen Urine Norm (Negative); pH Urine 5 (5-7)
[2023-04-10 21:01] VITALS: BP 145/75
== END 2023-04-10 21:02 | disposition home or self-care (01) ==
PROVIDERS: Emergency Provider Family Medicine; PCP Registered Nurse
DX: K52.9 Noninfective gastroenteritis and colitis, unspecified (principal)
CPT/HCPCS: 51798; 71045; 80053; 81003; 82550; 85025; 93005; 96374; 99285; J2405; J7030

== ENCOUNTER 2023-05-14 18:38 | Emergency (ER) | payer MEDICARE, SELFPAY ==
[2023-05-14 18:45] VITALS: PULSE 80; RESP 15; TEMP 36.7; O2SAT 97; BMI 18.5
[2023-05-14 19:06] LABS: Basophils % 0.3 %; Eosinophils # 0.2 10^3/uL (0.0-0.8); Eosinophils % 2.1 %; Hematocrit 34.6 % (42.0-52.0); Hemoglobin 10.6 g/dL (11.7-16.6); Lymphocytes # 1.4 10^3/uL (0.8-4.8); Lymphocytes % 17.6 %; Mean Corpuscular HGB Conc 30.6 g/dL (30.0-36.0); Mean Corpuscular Hemoglobin 23.6 pg (28.0-34.0); Mean Corpuscular Volume 77.1 fl (80-94); Mean Platelet Volume 8.9 fL (7.4-10.4); Monocytes # 0.7 10^3/uL (0.2-0.9); Monocytes % 9.1 %; Neutrophils # 5.62 10^3/uL (1.8-7.7); Neutrophils % 70.4 %; Nucleated Red Blood Cells % 0 %; Platelet Count 264 10^3/cmm (130-400); Red Blood Count 4.49 10^6/uL (4.1-5.3); Red Cell Distribution Width 15.3 % (12.1-15.1)
[2023-05-14 19:27] LABS: Alanine Aminotransferase < 5 U/L (0-41); Albumin Level 3.8 g/dL (3.5-5.2); Alkaline Phosphatase 110 U/L (40-130); Anion Gap 16.4 (5-19); Aspartate Amino Transferase 30 U/L (0-40); Blood Urea Nitrogen 22 mg/dL (8-23); Calcium 9.6 mg/dL (8.5-10.5); Carbon Dioxide 21 mmol/L (22-29); Chloride 100 mmol/L (98-107); Globulin 3.5 g/dL (1.3-4.6); Glomerular Filtration Rate 55.4 mL/min (90-130); Glucose 135 mg/dL (65-115); Lipase 110 U/L (13-60); Osmolality Calculated 281 mOsm/kg (285-295); Potassium 4.4 mmol/L (3.5-5.1); Sodium 133 mmol/L (136-145); Total Bilirubin 0.3 mg/dL (0.15-1.2); Total Protein 7.3 g/dL (6.6-8.7)
[2023-05-14] MEDS: sodium chloride 0.9% 1,000 ML 999 ML IV (21:10)
[2023-05-14 21:22] VITALS: BP 92/51
[2023-05-14 21:23] VITALS: BP 114/49
--- NOTE | 2023-05-14 21:23 | W.ED.ABDPA2 ---
HPI - Abdominal Pain General: Chief Complaint: Abdominal Pain Stated Complaint: abd pain Time Seen by Provider: 05/14/23 18:39 Source: patient Mode of arrival: ambulatory Limitations: no limitations History of Present Illness: 67-year-old male who has a history of colostomy placed roughly 3 to 4 weeks ago. Family states they have had a area of erythema around the skin she states that she is out of ostomy bags she currently damaging and placed and wanted to have the area cleaned and a new ostomy bag placed she is concerned possible cellulitis patient's had no pain no diarrhea no constipation no fever Associated Symptoms: Denies chills, diarrhea, fever(s), nausea and vomiting Review of Systems Const: Denies: fever(s), chills, body aches or change in appetite Eyes: Denies: eye discomfort ENMT: Denies: throat pain or dental pain Card: Denies: chest pain Resp: Denies: dyspnea GI: Denies: abdominal pain, nausea, vomiting or diarrhea Musc: Denies: neck pain or back pain Skin/Breast: Denies: rash Neuro: Denies: headache(s) PFSH ED PFSH: Medical History Parkinson disease Surgical History History of colonoscopy Status post colonoscopy (04/18/20) Family History Denies family history of Anesthesia complication Bleeding disorder Social History Smoking and tobacco status: never smoked Alcohol intake: never Substance/Drug Use: never Adopted: No Caregiver/support person: No Lives independently: No Household members: spouse Marital status: Sexually active: Yes Do you think of yourself as: Straight/Heterosexual Current gender identity: Male Physical Exam Const: COMMON NORMALS: no acute distress, patient oriented x3 and healthy appearing HENMT: COMMON NORMALS: normocephalic and atraumatic HEAD & SCALP: normocephalic and atraumatic Neck/C-Spine: COMMON NORMALS: full ROM and supple Chest: COMMONS NORMALS: normal inspection of the chest Resp: COMMON NORMALS: normal respiratory effort Cardio: COMMON NORMALS: regular rate, regular rhythm and No murmurs present (Cardio) RATE: regular rate RHYTHM: regular rhythm GI: COMMON NORMALS: Soft to palpation, non-tender and no masses PALPATION: Yes Soft to palpation OTHER: Slight erythematous skin around ostomy no severe infection ostomy well-appearing Extremity: COMMON NORMALS: normal to inspection and full ROM Neuro: COMMON NORMALS: patient oriented x3, moves all extremities and no focal motor deficits Psych: COMMON NORMALS: mental status grossly normal, Normal thought process present and cooperative THOUGHT PROCESS: Normal thought process present Skin: COMMON NORMALS: no rashes or lesions noted and no wounds GENERAL SKIN EXAM: no rashes or lesions noted Course Vital Signs: Vital signs: Vital Signs Temperature 98.0 F 05/14/23 18:45 Pulse Rate 80 05/14/23 18:45 Respiratory Rate 18 05/14/23 21:26 Blood Pressure 114/49 05/14/23 21:23 Pulse Oximetry 97 05/14/23 18:45 Oxygen Delivery Me thod Room Air 05/14/23 18:45 MDM - Abdominal Pain Medical Decision Making Patient presents with mild cellulitis and erythema did put a no colostomy bag on we will start him on antibiotics patient is follow-up with PCP and return if worsening. Medical Records I reviewed the patient's medical records. Lab Data I reviewed the patient's lab results. 05/14/23 19:02 05/14/23 19:02 Labs/Radiology: Laboratory Results WBC 8.0 10^3/uL (4.0-10.0) 05/14/23 19: RBC 4.49 10^6/uL (4.1-5.3) 05/14/23 19:02 Hgb 10.6 g/dL (11.7-16.6) L 05/14/23 19:02 Hct 34.6 % (42.0-52.0) L 05/14/23 19: MCV 77.1 fl (80-94) L 05/14/23 19:02 MCH 23.6 pg (28.0-34.0) L 05/14/23 19:02 MCHC 30.6 g/dL (30.0-36.0) 05/14/23 19: RDW 15.3 % (12.1-15.1) H 05/14/23 19:02 Plt Count 264 10^3/cmm (130-400) 05/14/23 19:02 MPV 8.9 fL (7.4-10.4) 05/14/23 19:02 Neut % (Auto) 70.4 % 05/14/23 19:02 Lymph % (Auto) 17.6 % 05/14/23 19:02 [place] % (Auto) 9.1 % 05/14/23 19:02 Eos % (Auto) 2.1 % 05/14/23 19:02 Baso % (Auto) 0.3 % 05/14/23 19:02 Neut # (Auto) 5.62 10^3/uL (1.8-7.7) 05/14/23 19:02 Lymph # (Auto) 1.4 10^3/uL (0.8-4.8) 05/14/23 19:02 [place] # (Auto) 0.7 10^3/uL (0.2-0.9) 05/14/23 19:02 Eos # (Auto) 0.2 10^3/uL (0.0-0.8) 05/14/23 19:02 Baso # (Auto) 0.0 10^3/uL (0.0-0.1) 05/14/23 19:02 Nucleated RBC % (auto) 0 % 05/14/23 19:02 Nucleated RBCs # 0.0 /100WBC 05/14/23 19:02 Sodium 133 mmol/L (136-145) L 05/14/23 19:02 Potassium 4.4 mmol/L (3.5-5.1) 05/14/23 19:02 Chloride 100 mmol/L (98-107) 05/14/23 19:02 Carbon Dioxide 21 mmol/L (22-29) L 05/14/23 19:02 Anion Gap 16.4 (5-19) 05/14/23 19:02 BUN 22 mg/dL (8-23) 05/14/23 19:02 Creatinine 1.3 mg/dL (0.7-1.2) H 05/14/23 19:02 GFR Calculation 55.4 mL/min (90-130) L 05/14/23 19:02 Glucose 135 mg/dL (65-115) H 05/14/23 19:02 Calculated Osmolality 281 mOsm/kg (285-295) L 05/14/23 19:02 Calcium 9.6 mg/dL (8.5-10.5) 05/14/23 19:02 Total Bilirubin 0.3 mg/dL (0.15-1.2) 05/14/23 19:02 AST 30 U/L (0-40) 05/14/23 19:02 ALT < 5 U/L (0-41) 05/14/23 19:02 Alkaline Phosphatase 110 U/L (40-130) 05/14/23 19:02 Total Protein 7.3 g/dL (6.6-8.7) 05/14/23 19:02 Albumin 3.8 g/dL (3.5-5.2) 05/14/23 19:02 Globulin 3.5 g/dL (1.3-4.6) 05/14/23 19:02 Lipase 110 U/L (13-60) H 05/14/23 19:02 Discharge Plan Discharge Patient Disposition: Home Clinical Impression: Cellulitis, Colostomy in place Condition: Stable Prescriptions: New cephalexin 500 mg capsule 500 mg PO TID 7 Days Qty: 21 0RF No Action rasagiline 1 mg tablet 1 mg PO DAILY clonazepam 0.5 mg tablet 0.5 mg PO DAILY entacapone 200 mg tablet 200 mg PO QID Rx Instructions: administer at the same time as l-dopa/carbidopa dose polyethylene glycol 3350 17 g PO DAILY Rx Instructions: 1 cap per day carbidopa-levodopa 25-100 mg Tablet 2 tab PO QID melatonin 10 mg Tablet 10 mg PO DAILY ondansetron HCl 4 mg tablet 4 mg PO Q6H PRN (Reason: nausea and vomiting) Qty: 14 0RF Discharge Orders: Discharge ED (Routine); Ordered 05/14/23 Ordered By: Gina Espinosa Referrals: Suzette Fontenot FNP [Primary Care Provider] - 1-3 days Discharge Diet: Advance as tolerated Discharge Activity: Resume usual activity Patient Instructions: Colostomy Care (ED), Cellulitis (ED) Coding Level of Care Code ED Bobbin Cleaner for Izyz Solomon
[2023-05-14 21:26] VITALS: RESP 18
[2023-05-14] MEDS: morphine 4 mg/mL SDV 1 mL IVP (21:26)
[2023-05-14] MEDS: ondansetron 2 mg/ML SDV 2 mL 4 MG IVP (21:26)
[2023-05-14] MEDS: cephALEXin 500 mg Capsule PO (22:12)
[2023-05-14 22:16] VITALS: BP 106/57; PULSE 78; O2SAT 97
== END 2023-05-14 22:30 | disposition home or self-care (01) ==
PROVIDERS: Physician Assistant; Emergency Provider Emergency Medicine; PCP Registered Nurse
DX: L03.311 Cellulitis of abdominal wall (principal); Z93.3 Colostomy status; G20 Parkinson's disease
CPT/HCPCS: 36415; 80053; 83690; 85025; 96374; 96375; 99284; J2270; J2405; J7030

== ENCOUNTER 2024-08-24 12:02 | Outpatient (CLI) | payer MEDICARE, SELFPAY | END 2024-08-24 12:03 | disposition home or self-care (01) | PROVIDERS: PCP Registered Nurse; Visit Provider Nurse Practitioner Family | DX: N40.0 Benign prostatic hyperplasia without lower urinary tract symptoms (principal); R53.83 Other fatigue; R53.1 Weakness | CPT/HCPCS: 80053; 82040; 83036; 84270; 84403; 84443; 85025; G0103 ==

== ENCOUNTER → 2024-11-04 15:14 | Outpatient (BNVA) | payer MEDICARE, SELFPAY | PROVIDERS: PCP Registered Nurse; Visit Provider Nurse Practitioner Family | DX: R35.0 Frequency of micturition (principal) | CPT/HCPCS: 81000 ==